=== PATIENT | female | born 1970 | race Caucasian/White ===

== ENCOUNTER → 2019-02-19 08:05 | Outpatient (CLI) | payer MEDICAID, SELFPAY ==
[2018-09-05 09:34] VITALS: BMI 17.8
--- NOTE | 2019-02-19 08:11 | BI_ITS ---
MAMMOGRAPHY - BILATERAL SCREENING REASON FOR EXAM: Female, 48 years old. Routine annual screening examination. PERTINENT HISTORY: Aunt with breast cancer. TECHNIQUE: Digital bilateral breast lavelle (3D mammographic acquisition) in the CC and MLO projections. 2-D mediolateral oblique (MLO) and craniocaudad (CC) views of both breasts were obtained. CAD: Full Field Digital Mammography with Computer Added Detection was performed. COMPARISON: Comparison is made with prior study dated July 27, 2017 and March 12, 2015. FINDINGS: Breast Composition: The breasts are heterogeneously dense, which may obscure small masses. There are no dominant masses or suspicious calcifications. No other significant abnormalities are identified. There has been no significant change since the prior study. BI/SCREEN MAMM (CAD) W/LAVELLE BILAT IMPRESSION: Stable bilateral screening mammogram. Yearly follow-up mammogram recommended. (A) ASSESSMENT CATEGORY: BIRADS Category 1: Negative. A letter regarding these results will be sent to the patient by the facility within 30 days. Approximately 10% of breast cancers are not detected by mammography. A normal mammogram should not delay biopsy of a clinically suspicious abnormality. [id number] Electronically Signed: Isidoro Silva, at 8:56 EDT , Service support ,
== END ==
PROVIDERS: Visit Provider Nurse Practitioner Family
DX: Z12.31 Encounter for screening mammogram for malignant neoplasm of breast (principal)
CPT/HCPCS: 77063; 77067

== ENCOUNTER → 2019-03-10 14:12 | Outpatient (CLI) | payer MEDICAID, SELFPAY ==
[2019-03-10 11:31] VITALS: BMI 17.8
[2019-03-10 14:15] LABS: Bacteria 0 SEEN /hpf (None Seen); Mucous, Urine 0 SEEN /hpf (<or=2+); Squamous Epithelial Cells - UA 0 SEEN /hpf (5-10)
[2019-03-10 15:06] LABS: Color, Urine Yellow (Yellow); Glucose, Dipstick Normal (Normal); Ketone-Dipstick Negative (Negative); Leukocyte Esterase-Dipstick 25 /ul (Negative); Nitrite-Dipstick Negative (Negative); Occult Blood-Urine 150 /ul (Negative); Protein-Dipstick 15 mg/dl (Negative); Specific Gravity, Urine 1.025 (1.002-1.030); Urine Bilirubin Dipstick Negative (Negative); Urine Clarity Clear (Clear); Urine Urobilinogen Normal (Normal)
[2019-03-10 15:10] LABS: Red Blood Cells-Urine 10-25 SEEN /hpf (0-5); White Blood Cells 0-5 SEEN /hpf (0-5)
== END ==
PROVIDERS: Visit Provider Nurse Practitioner Family
DX: R30.0 Dysuria (principal); R39.15 Urgency of urination
CPT/HCPCS: 81001; 87086; 87088

== ENCOUNTER → 2019-05-02 11:35 | Outpatient (CLI) | payer MEDICAID, SELFPAY ==
[2019-03-10 11:31] VITALS: BMI 17.8
--- NOTE | 2019-05-02 11:37 | US_ITS ---
STUDY: THYROID ULTRASOUND REASON FOR EXAM: Female, 49 years old. Goiter TECHNIQUE: Ultrasound evaluation of the thyroid was performed with real-time and static gant-scale imaging. COMPARISON: None. FINDINGS: RIGHT LOBE: The right lobe of the thyroid gland measures 3.9 x 1 x 0.9 cm. There is a homogeneous echotexture. There are no demonstrated solid, cystic or complex lesions. LEFT LOBE: The left lobe of the thyroid gland measures 3.7 x 1.1 x 0.7 cm. There is a homogeneous echotexture. There are no demonstrated solid, cystic or complex lesions. ISTHMUS: The isthmus measures 2 mm . The regional lymph nodes are normal. US/Thyroid IMPRESSION: Normal ultrasound examination of the thyroid. Electronically Signed: Chadd Leblanc MD at 17:24 EDT , Service support ,
== END ==
DX: E04.1 Nontoxic single thyroid nodule (principal)
CPT/HCPCS: 76536

== ENCOUNTER → 2020-05-22 10:42 | Outpatient (CLI) | payer MEDICAID, SELFPAY ==
[2019-09-23 11:53] VITALS: BMI 17.8
[2020-05-22 11:37] LABS: Absolute Lymphocyte Count 1.36 X10^3/uL (0.83-4.51); Basophil# 0.06 X10^3/uL; Basophil% 1.6 % (0-1); Eosinophil# 0.03 X10^3/uL; Eosinophils% 0.8 % (0-5); Hematocrit 35.7 % (37-47); Hemoglobin 11.5 g/dL (12.0-15.0); Lymphocyte # 1.36 X10^3/ul (4.0); Lymphocyte % 36.1 % (19-41); Mean Corp Hgb Conc 32.2 g/dL (32-36); Mean Corpuscular Hgb 31.4 pg (27.0-32.0); Mean Corpuscular Volume 97.5 fL (81-99); Mean Platelet Vol. 9.7 fl (6.2-12.0); Monocyte# 0.32 X10^3/uL; Monocyte% 8.5 % (0-10); NRBC Flagged by Analyzer 0 % (0-5); Neutrophil # 1.99 X10^3/uL (2.7-7.7); Neutrophil % 52.7 % (47-70); Platelet Count 265 K/mm3 (150-450); RBC Distribution Width CV 12.5 % (11.6-14.6); RBC Distribution Width SD 44.7 fl (35.1-43.9); Red Blood Count 3.66 M/mm3 (4.2-5.4); White Blood Count 3.8 K/mm3 (4.4-11.0)
[2020-05-22 12:03] LABS: Vitamin D,25 Hydroxy 48.7 ng/mL
[2020-05-22 12:04] LABS: ALB/GLOB Ratio 1.3 RATIO (0.9-2.4); AST(SGOT) 27 U/L (15-37); Alanine Aminotransfer ALT/SGPT 29 U/L (13-56); Albumin, Serum 4.1 g/dL (3.2-5.0); Alkaline Phosphatase 42 U/L (45-117); Anion Gap 7 (5-15); BUN 15 mg/dL (7-18); BUN/Creat Ratio 14.6 RATIO (10-20); Calcium,Total 9.4 mg/dL (8.5-10.1); Chloride 109 mmol/L (98-107); Cholesterol 203 mg/dL (200); Creatinine, Serum 1.03 mg/dL (0.55-1.02); EST Glomerular Filtration Rate 61 mL/min (>60); Est Glom Filt Rate - Afr Amer 74 mL/min (>60); Globulin 3.2 g/dL (2.2-4.2); Glucose 77 mg/dL (74-106); High Density Lipoprotein 116 mg/dL; Potassium 3.8 mmol/L (3.5-5.1); Protein, Total 7.3 g/dL (6.4-8.2); Sodium Level 143 mmol/L (136-145); Thyroid Stim Hormone (TSH) 1.96 uIU/mL (0.358-3.74); Triglycerides 51 mg/dL; Very Low Density Lipoprotein 10 mg/dL (5-40)
[2020-05-22 12:05] LABS: Hemoglobin A1c 5.2 % (3.8-5.6)
[2020-05-23 08:27] LABS: T4 Free Direct 0.67 ng/dL (0.76-1.46)
== END ==
PROVIDERS: Referring Provider Nurse Practitioner Family; Visit Provider Nurse Practitioner Family
DX: E78.5 Hyperlipidemia, unspecified (principal); N18.9 Chronic kidney disease, unspecified; D63.1 Anemia in chronic kidney disease; F50.00 Anorexia nervosa, unspecified; Z13.29 Encounter for screening for other suspected endocrine disorder
CPT/HCPCS: 36415; 80053; 80061; 82306; 83036; 84439; 84443; 84481; 85025

== ENCOUNTER → 2020-08-14 10:59 | Outpatient (CLI) | payer MEDICAID, SELFPAY ==
[2019-09-23 11:53] VITALS: BMI 17.8
[2020-08-14 11:39] LABS: Absolute Lymphocyte Count 1.43 X10^3/uL (0.83-4.51); Basophil# 0.07 X10^3/uL; Basophil% 1.8 % (0-1); Eosinophil# 0.02 X10^3/uL; Eosinophils% 0.5 % (0-5); Hematocrit 37.6 % (37-47); Hemoglobin 11.8 g/dL (12.0-15.0); Lymphocyte # 1.43 X10^3/ul (4.0); Lymphocyte % 37.1 % (19-41); Mean Corp Hgb Conc 31.4 g/dL (32-36); Mean Corpuscular Hgb 30.8 pg (27.0-32.0); Mean Corpuscular Volume 98.2 fL (81-99); Mean Platelet Vol. 9.9 fl (6.2-12.0); Monocyte# 0.32 X10^3/uL; Monocyte% 8.3 % (0-10); NRBC Flagged by Analyzer 0 % (0-5); Platelet Count 239 K/mm3 (150-450); RBC Distribution Width CV 12.2 % (11.6-14.6); RBC Distribution Width SD 44.5 fl (35.1-43.9); Red Blood Count 3.83 M/mm3 (4.2-5.4); White Blood Count 3.9 K/mm3 (4.4-11.0)
[2020-08-14 12:16] LABS: ALB/GLOB Ratio 1.3 RATIO (0.9-2.4); AST(SGOT) 26 U/L (15-37); Alanine Aminotransfer ALT/SGPT 31 U/L (13-56); Albumin, Serum 4.2 g/dL (3.2-5.0); Alkaline Phosphatase 49 U/L (45-117); Anion Gap 6 (5-15); BUN 12 mg/dL (7-18); BUN/Creat Ratio 11.4 RATIO (10-20); Calcium,Total 9.7 mg/dL (8.5-10.1); Chloride 111 mmol/L (98-107); Cholesterol 223 mg/dL (200); Creatinine, Serum 1.05 mg/dL (0.55-1.02); EST Glomerular Filtration Rate 59 mL/min (>60); Est Glom Filt Rate - Afr Amer 72 mL/min (>60); Globulin 3.3 g/dL (2.2-4.2); Glucose 76 mg/dL (74-106); High Density Lipoprotein 127 mg/dL; Potassium 3.6 mmol/L (3.5-5.1); Protein, Total 7.5 g/dL (6.4-8.2); Sodium Level 143 mmol/L (136-145); Triglycerides 57 mg/dL; Very Low Density Lipoprotein 11 mg/dL (5-40)
== END ==
DX: E78.5 Hyperlipidemia, unspecified (principal)
CPT/HCPCS: 36415; 80053; 80061; 85025

== ENCOUNTER → 2020-12-21 10:08 | Outpatient (CLI) | payer MEDICAID, SELFPAY ==
[2019-09-23 11:53] VITALS: BMI 17.8
[2020-12-21 11:17] LABS: Absolute Lymphocyte Count 1.62 X10^3/uL (0.83-4.51); Absolute Neutrophil Count 2.1 X10^3/uL (2.0-7.7); Basophil# 0.05 X10^3/uL; Basophil% 1.2 % (0-1); Eosinophil# 0.05 X10^3/uL; Eosinophils% 1.2 % (0-5); Hematocrit 38.4 % (37-47); Hemoglobin 11.9 g/dL (12.0-15.0); Lymphocyte # 1.62 X10^3/ul (0.83-4.51); Lymphocyte % 39.3 % (19-41); Mean Corpuscular Hgb 30.5 pg (27.0-32.0); Mean Corpuscular Volume 98.5 fL (81-99); Monocyte# 0.34 X10^3/uL; Monocyte% 8.3 % (0-10); NRBC Flagged by Analyzer 0 % (0-5); Neutrophil # 2.05 X10^3/uL (2.7-7.7); Neutrophil % 49.8 % (47-70); Platelet Count 250 K/mm3 (150-450); RBC Distribution Width CV 12.5 % (11.6-14.6); RBC Distribution Width SD 45.3 fl (35.1-43.9); White Blood Count 4.1 K/mm3 (4.4-11.0)
[2020-12-21 11:54] LABS: ALB/GLOB Ratio 1.2 RATIO (0.9-2.4); AST(SGOT) 25 U/L (15-37); Alanine Aminotransfer ALT/SGPT 33 U/L (13-56); Alkaline Phosphatase 49 U/L (45-117); Anion Gap 4 (5-15); BUN 12 mg/dL (7-18); BUN/Creat Ratio 11.2 RATIO (10-20); Calcium,Total 9.6 mg/dL (8.5-10.1); Chloride 108 mmol/L (98-107); Creatinine, Serum 1.07 mg/dL (0.55-1.02); EST Glomerular Filtration Rate 58 mL/min (>60); Est Glom Filt Rate - Afr Amer 70 mL/min (>60); Globulin 3.2 g/dL (2.2-4.2); Glucose 74 mg/dL (74-106); Potassium 3.6 mmol/L (3.5-5.1); Protein, Total 7.2 g/dL (6.4-8.2); Sodium Level 140 mmol/L (136-145); Thyroid Stim Hormone (TSH) 3.26 uIU/mL (0.358-3.74)
== END ==
DX: F50.00 Anorexia nervosa, unspecified (principal)
CPT/HCPCS: 36415; 80053; 84443; 85025

== ENCOUNTER → 2020-12-27 14:14 | Outpatient (CLI) | payer MEDICAID, SELFPAY ==
[2019-09-23 11:53] VITALS: BMI 17.8
--- NOTE | 2020-12-27 14:16 | BI_ITS ---
MAMMOGRAPHY - BILATERAL SCREENING REASON FOR EXAM: Female, 50 years old. Routine annual screening examination. PERTINENT HISTORY: Aunt with breast cancer. TECHNIQUE: Digital bilateral breast lavelle (3D mammographic acquisition) in the CC and MLO projections. 2-D mediolateral oblique (MLO) and craniocaudad (CC) views of both breasts were obtained. CAD: Full Field Digital Mammography with Computer Added Detection was performed. COMPARISON: Comparison is made with prior study dated 02/19/2019 and 11/04/2016. FINDINGS: Breast Composition: The breasts are heterogeneously dense, which may obscure small masses. There are no dominant masses or suspicious calcifications. No other significant abnormalities are identified. There has been no significant change since the prior study. BI/SCRN MAMM (CAD)W/LAVELLE BILAT IMPRESSION: Stable bilateral screening mammogram. Yearly follow-up mammogram recommended. (A) ASSESSMENT CATEGORY: BIRADS Category 1: Negative. A letter regarding these results will be sent to the patient by the facility within 30 days. Approximately 10% of breast cancers are not detected by mammography. A normal mammogram should not delay biopsy of a clinically suspicious abnormality. [id number] Electronically Signed: Isidoro Silva MD at 15:31 EDT , Service support ,
--- NOTE | 2020-12-27 14:22 | BD_ITS ---
STUDY: DUAL ENERGY X-RAY ABSORPTIOMETRY / DXA REASON FOR EXAM: Female, 50 years old. F50.00 TECHNIQUE: Bone Mineral Density (BMD) measurements of lumbar spine and bilateral hips were obtained. COMPARISON: None. FINDINGS: Lumbar Spine (L1-L4): g/cm2 (1.156) / T-score (-0.2) / Z-score (0.1) Findings are suggestive of normal bone density with a low fracture risk. Left Femur Total: g/cm2 (0.779) / T-score (-1.8) / Z-score (-1.4) Left Femoral Neck: g/cm2 (0.828) / T-score (-1.5) / Z-score (-0.8) Right Femur Total: g/cm2 (0.745) / T-score (-2.1) / Z-score (-1.7) Right Femoral Neck: g/cm2 (0.866) / T-score (-1.2) / Z-score (-0.5) BD/Dexa Bone Density Study IMPRESSION: The patient is considered osteopenic as outlined below according to [employer] [place] Organization (WHO) criteria with a moderate fracture risk. Reference Information: The T-score is the number of standard deviations above or below the standard which is normal for young adults at their peak bone mineral density. The World Health Organization (WHO) interprets the T-scores as follows: Above -1 Normal bone density Between -1 and -2.5 Osteopenia Equal to / or below -2.5 Osteoporosis As a practical clinical guideline, osteopenia may be graded as follows: Mild -1 through -1.5 Moderate -1.6 through -2.0 Severe -2.1 through -2.4 The Z-score is the number of standard deviations above or below age-matched controls. A Z-score of less than -1.5 would be considered abnormal. References: 1. NIH Osteoporosis and Related Bone Diseases www osteo.org 2. International Society for Clinical Densitometry www iscd.org 3. National Osteoporosis Foundation www nof.org Electronically Signed: Isidoro Silva MD at 15:41 EDT , Service support ,
== END ==
DX: F50.00 Anorexia nervosa, unspecified (principal); Z12.31 Encounter for screening mammogram for malignant neoplasm of breast; Z80.3 Family history of malignant neoplasm of breast
CPT/HCPCS: 77063; 77067; 77080

== ENCOUNTER → 2021-05-22 11:02 | Outpatient (CLI) | payer MEDICAID, SELFPAY ==
[2021-05-22 13:13] LABS: Absolute Lymphocyte Count 1.45 X10^3/uL (0.83-4.51); Absolute Neutrophil Count 2.8 X10^3/uL (2.0-7.7); Basophil# 0.04 X10^3/uL; Basophil% 0.9 % (0-1); Eosinophil# 0.04 X10^3/uL; Eosinophils% 0.9 % (0-5); Hematocrit 34.9 % (37-47); Hemoglobin 11.1 g/dL (12.0-15.0); Lymphocyte # 1.45 X10^3/ul (0.83-4.51); Mean Corp Hgb Conc 31.8 g/dL (32-36); Mean Corpuscular Hgb 31.4 pg (27.0-32.0); Mean Corpuscular Volume 98.9 fL (81-99); Mean Platelet Vol. 10.6 fl (6.2-12.0); Monocyte# 0.37 X10^3/uL; Monocyte% 7.9 % (0-10); NRBC Flagged by Analyzer 0 % (0-5); Neutrophil # 2.76 X10^3/uL (2.7-7.7); Neutrophil % 59.1 % (47-70); Platelet Count 226 K/mm3 (150-450); RBC Distribution Width CV 12.4 % (11.6-14.6); Red Blood Count 3.53 M/mm3 (4.2-5.4); White Blood Count 4.7 K/mm3 (4.4-11.0)
[2021-05-22 13:51] LABS: AST(SGOT) 29 U/L (15-37); Alanine Aminotransfer ALT/SGPT 31 U/L (13-56); Albumin, Serum 3.6 g/dL (3.2-5.0); Alkaline Phosphatase 49 U/L (45-117); Anion Gap 5 (5-15); BUN 12 mg/dL (7-18); BUN/Creat Ratio 12.3 RATIO (10-20); Calcium,Total 10.3 mg/dL (8.5-10.1); Chloride 110 mmol/L (98-107); Creatinine, Serum 0.98 mg/dL (0.55-1.02); EST Glomerular Filtration Rate 64 mL/min (>60); Est Glom Filt Rate - Afr Amer 78 mL/min (>60); Globulin 3.5 g/dL (2.2-4.2); Glucose 75 mg/dL (74-106); Potassium 3.7 mmol/L (3.5-5.1); Protein, Total 7.1 g/dL (6.4-8.2); Sodium Level 142 mmol/L (136-145)
== END ==
DX: D64.9 Anemia, unspecified (principal); F50.00 Anorexia nervosa, unspecified
CPT/HCPCS: 36415; 80053; 85025

== ENCOUNTER → 2021-05-24 11:31 | Outpatient (CLI) | payer MEDICAID, SELFPAY ==
[2021-05-24 13:29] LABS: Vitamin B12 > 2000 pg/mL (211-911)
[2021-05-24 14:13] LABS: Iron 115 ug/dL (50-170); Iron Binding Capacity,Total 318 ug/dL (250-450); PERCENT IRON SATURATION 36.2 % (15.0-55.0)
== END ==
PROVIDERS: Referring Provider Nurse Practitioner Adult Health; Visit Provider Nurse Practitioner Adult Health
DX: D64.9 Anemia, unspecified (principal)
CPT/HCPCS: 36415; 82607; 82746; 83540; 83550

== ENCOUNTER → 2021-07-20 | Outpatient (CLI) | payer MEDICAID, SELFPAY ==
[2021-07-20 15:06] LABS: Mucous, Urine 0 SEEN /hpf (<or=2+)
[2021-07-20 15:49] LABS: Color, Urine Yellow (Yellow); Glucose, Dipstick Normal (Normal); Ketone-Dipstick 5 mg/dl (Negative); Leukocyte Esterase-Dipstick 25 /ul (Negative); Nitrite-Dipstick Negative (Negative); Occult Blood-Urine 10 /ul (Negative); Protein-Dipstick 15 mg/dl (Negative); Specific Gravity, Urine 1.025 (1.002-1.030); Urine Bilirubin Dipstick Negative (Negative); Urine Clarity Sl. Cloudy (Clear); Urine Urobilinogen Normal (Normal)
[2021-07-20 16:12] LABS: Red Blood Cells-Urine 0-5 SEEN /hpf (0-5); Squamous Epithelial Cells - UA 5-10 SEEN /hpf (5-10); White Blood Cells 0-5 SEEN /hpf (0-5)
[2021-07-20 16:13] LABS: Bacteria RARE /hpf (None Seen)
== END | disposition home or self-care (01) ==
PROVIDERS: Referring Provider Physician Assistant Medical; Visit Provider Physician Assistant Medical
DX: N39.0 Urinary tract infection, site not specified (principal)
CPT/HCPCS: 81001; 87086; 87088

== ENCOUNTER 2021-08-13 13:15 | Emergency (ER) | payer MEDICAID, SELFPAY ==
[2021-08-13 13:15] VITALS: BP 159/87; PULSE 63; RESP 18; TEMP 35.8; O2SAT 98; BMI 20.5
[2021-08-13 14:16] LABS: Absolute Lymphocyte Count 0.98 X10^3/uL (0.83-4.51); Absolute Neutrophil Count 6.3 X10^3/uL (2.0-7.7); Basophil# 0.06 X10^3/uL; Basophil% 0.8 % (0-1); Eosinophil# 0.01 X10^3/uL; Eosinophils% 0.1 % (0-5); Hematocrit 39.9 % (37-47); Hemoglobin 13.2 g/dL (12.0-15.0); Lymphocyte # 0.98 X10^3/ul (0.83-4.51); Lymphocyte % 12.3 % (19-41); Mean Corp Hgb Conc 33.1 g/dL (32-36); Mean Corpuscular Hgb 31.6 pg (27.0-32.0); Mean Corpuscular Volume 95.5 fL (81-99); Mean Platelet Vol. 9.8 fl (6.2-12.0); Monocyte# 0.59 X10^3/uL; Monocyte% 7.4 % (0-10); NRBC Flagged by Analyzer 0 % (0-5); Neutrophil # 6.32 X10^3/uL (2.7-7.7); Neutrophil % 79.1 % (47-70); Platelet Count 283 K/mm3 (150-450); RBC Distribution Width CV 12.4 % (11.6-14.6); RBC Distribution Width SD 43.3 fl (35.1-43.9); Red Blood Count 4.18 M/mm3 (4.2-5.4)
[2021-08-13 14:29] LABS: Internal QC Validated? YES +Cl - CLEAR BKGD; Pregnancy, Serum, hCG Quali. NEGATIVE Negative
[2021-08-13 14:31] LABS: Anion Gap 9 (5-15); BUN 20 mg/dL (7-18); BUN/Creat Ratio 14.7 RATIO (10-20); Calcium,Total 11.5 mg/dL (8.5-10.1); Chloride 110 mmol/L (98-107); Creatinine, Serum 1.36 mg/dL (0.55-1.02); EST Glomerular Filtration Rate 44 mL/min (>60); Est Glom Filt Rate - Afr Amer 53 mL/min (>60); Glucose 87 mg/dL (74-106); Potassium 3.6 mmol/L (3.5-5.1); Sodium Level 145 mmol/L (136-145)
--- NOTE | 2021-08-13 15:33 | CT_ITS ---
STUDY: CT ABDOMEN AND PELVIS WITHOUT CONTRAST REASON FOR EXAM: Female, 51 years old. Flank pain RADIATION DOSAGE (If Supplied By Facility): CTDIvol = ( 6.04 ) mGy, DLP = ( 271.80 ) mGycm TECHNIQUE: Transaxial images were obtained from the dome of the diaphragm to the symphysis pubis without oral contrast, and without intravenous contrast. Sagittal and coronal images were reconstructed. Individualized dose optimization techniques were used for this CT. COMPARISON: None. FINDINGS: Partially visualized nodular densities on the right major fissure. The visualized portions of the heart are within normal limits. Normal liver. Normal gallbladder and extrahepatic biliary system. Normal spleen. Normal pancreas. Normal bilateral adrenal glands. Punctate stone in the right kidney. 6 mm fatty nodule likely an angiomyolipoma in the left kidney. Left hydronephrosis with left hydroureter with a distal ureteral stone noted measuring 4 mm located approximately 1.3 cm proximal to the UVJ.. Normal visualized stomach. Normal small intestine. Normal colon. The appendix is visualized and appears normal. Normal abdominal aorta. Normal inferior vena cava. Normal retroperitoneum. Normal urinary bladder. Normal abdominal wall. Spondylolysis at L5.. CT/Abdomen/Pelvis without Cont IMPRESSION: Punctate right renal stone. Left hydronephrosis and left hydroureter with a distal left ureteral stone noted. 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 Nonspecific partially visualized nodule along the right major fissure. Electronically Signed: Pipo Reina DO at 16:15 EST Tel [phone], Service support ,
[2021-08-13 15:40] LABS: Mucous, Urine 0 SEEN /hpf (<or=2+)
--- NOTE | 2021-08-13 15:41 | EDS_ITS ---
HPI HPI - GI History of Present Illness Chief Complaint: Flank Pain Narrative Narrative: Patient presenting for evaluation secondary to left-sided flank pain. Patient reports that she had an onset of this this morning. Its waxing and waning relatively severe type pain that is worse with palpation not necessarily movement. Patient denies constitutional symptoms such as fever chills night sweats unintended weight loss. Patient does report that she has been currently getting treated for a urinary tract infection, she finished her last dose of Keflex just this morning reports that she no longer has urinary urgency or burning. She denies any hematuria. Patient denies any underlying past history of of kidney stones. Review of systems otherwise negative. [facility] Medical History Anemia Diarrhea Hx of anorexia nervosa Hypercholesterolemia Home Medications ascorbic acid (vitamin C) 500 mg capsule 500 mg PO DAILY cap 06/14/18 [History Last Taken Unknown] bupropion HCl 150 mg tablet,12 hr sustained-release 150 mg PO DAILY 30 Days #60 ea 06/14/18 [History Last Taken Unknown] cholecalciferol (vitamin D3) 25 mcg (1,000 unit) capsule 1,000 unit PO DAILY 06/14/18 [History Last Taken Unknown] escitalopram oxalate 20 mg tablet 20 mg PO DAILY 30 Days #30 tab 06/14/18 [ History Last Taken Unknown] multivitamin 1 cap PO DAILY 06/14/18 [History Last Taken Unknown] pravastatin 10 mg tablet 10 mg PO DAILY 30 Days #30 tab 06/14/18 [History Last Taken Unknown] cephalexin 500 mg PO Q12 #14 capsule 08/13/21 [Rx Last Taken Unknown] ketorolac 10 mg PO TID 5 Days #15 tab 08/13/21 [Rx Last Taken Unknown] tamsulosin [Flomax] 0.4 mg PO DAILY #7 cap 08/13/21 [Rx Last Taken Unknown] Allergy/AdvReac Type Severity Reaction Status Date / Time Sulfa (Sulfonamide Allergy Unknown Verified 08/13/21 13:17 Antibiotics) Family History Other Breast cancer Colon cancer Diabetes Hypercholesterolemia Hypertension Social History Smoking Status: Never smoker alcohol intake: never ROS ROS ED Constitutional Constitutional ED: Denies chills or fever(s) ENT ENT ED: Denies rhinorrhea Cardiovascular Cardiovascular: Denies chest pain Respiratory/Chest Respiratory/Chest: Denies cough or dyspnea Gastrointestinal Gastrointestinal: Denies abdominal pain, diarrhea, nausea or vomiting Genitourinary Genitourinary ED: Reports other Details: Left flank pain Musculoskeletal Musculoskeletal: Denies back pain Integumentary Denies rash Neurologic Neurologic: Denies paresthesias or weakness Psychiatric Psychiatric: Denies depression Endocrine Endocrinology: Denies fatigue Allergic/Immunologic Allergic/Immunologic ED: Denies urticaria EXAM Physical Exam Const Vital Signs: 08/13/21 13:15 08/13/21 15:26 Temperature 96.5 F L Temperature Source Temporal Pulse Rate 63 Respiratory Rate 18 Respiratory Effort Normal Non-Labored Respiratory Pattern Normal Blood Pressure 159/87 H Blood Pressure Mean 111 Pulse Ox 98 Oxygen Delivery Method Room Air Positive well nourished and well developed General Appearance ED: well developed and NAD HEENT Reports moist mucous membranes Negative for trauma or tenderness Eyes EOMs intact bilaterally Neck no lymphadenopathy, supple and no JVD Chest Wall inspection of chest normal Resp normal respiratory effort and clear to auscultation bilaterally Cardio regular rate, regular rhythm, no murmurs and peripheral pulses 2+ throughout GI normal to inspection, nondistended, normoactive bowel sounds, non-tender and no masses Palpation: soft Back/Spine normal to inspection Back/Spine Narrative: No evidence of overlying vesicular rash. No real tenderness to percussion noted. Extremity normal to inspection General Extremety ED: Negative for tenderness Neuro oriented x3 and no sensory deficits noted Sensorium / Orientation: alert Motor Exam: strength 5/5 throughout Psych mental status grossly normal Skin no rashes or lesions noted MDM MDM MDM Narrative Medical decision making narrative: Patient presented for evaluation secondary to flank pain. Laboratory studies were obtained in triage, CBC was unremarkable, chemistry does demonstrate the patient to have mild elevation of her creatinine from a baseline of 0.9 up to 1.36 no evidence of significant electrolyte derangements. Urinalysis demonstrates blood, hyaline casts, and +1 bacteria no significant pyuria noted. CT abdomen and pelvis was performed on the patient which does show evidence of a distal left-sided ureteral stone with associated hydronephrosis by my personal review. Patient was given IV hydration as well as a small dose of Toradol for treatment of pain control. Radiology review of CT scan demonstrates a 4 mm distal left-sided ureteral stone consistent with my above interpretation. Patient will be discharged with the above treatment. Lab Data Labs: Laboratory Results - last 24 hr 08/13/21 08/13/21 08/13/21 14:08 14:08 14:08 WBC 8.0 RBC 4.18 L Hgb 13.2 Hct 39.9 MCV 95.5 MCH 31.6 MCHC 33.1 RDW Std Deviation 43.3 RDW Coeff of Jennifer 12.4 Plt Count 283 MPV 9.8 Immature Gran % (Auto) 0.300 Neut % (Auto) 79.1 H Lymph % (Auto) 12.3 L [place] % (Auto) 7.4 Eos % (Auto) 0.1 Baso % (Auto) 0.8 Absolute Neuts (auto) 6.3 Absolute Lymphs (auto) 0.98 Nucleated RBC % 0 Sodium 145 Potassium 3.6 Chloride 110 H Carbon Dioxide 26.0 Anion Gap 9 BUN 20 H Creatinine 1.36 H Estim Creat Clear Calc 43.00 Est GFR (MDRD) Af Amer 53 L Est GFR (MDRD) Non-Af 44 L BUN/Creatinine Ratio 14.7 Glucose 87 Calcium 11.5 H Serum , Qual NEGATIVE Urine Color Urine Clarity Urine pH Ur Specific [place] Urine Protein Urine Glucose (UA) Urine Ketones Urine Occult Blood Urine Nitrite Urine Bilirubin Urine Urobilinogen Ur Leukocyte Esterase Urine RBC Urine WBC Ur Squamous Epith Cells Calcium Oxalate Crystal Urine Bacteria Hyaline Casts Urine Mucus 08/13/21 15:30 WBC RBC Hgb Hct MCV MCH MCHC RDW Std Deviation RDW Coeff of Jennifer Plt Count MPV Immature Gran % (Auto) Neut % (Auto) Lymph % (Auto) [place] % (Auto) Eos % (Auto) Baso % (Auto) Absolute Neuts (auto) Absolute Lymphs (auto) Nucleated RBC % Sodium Potassium Chloride Carbon Dioxide Anion Gap BUN Creatinine Estim Creat Clear Calc Est GFR (MDRD) Af Amer Est GFR (MDRD) Non-Af BUN/Creatinine Ratio Glucose Calcium Serum , Qual Urine Color Yellow Urine Clarity Sl. Cloudy Urine pH 5.0 Ur Specific [place] 1.030 Urine Protein 30 H Urine Glucose (UA) Normal Urine Ketones 50 H Urine Occult Blood 150 H Urine Nitrite Negative Urine Bilirubin Negative Urine Urobilinogen Normal Ur Leukocyte Esterase 25 H Urine RBC 10-25 SEEN Urine WBC 0-5 SEEN Ur Squamous Epith Cells 0-5 SEEN Calcium Oxalate Crystal 1+ Urine Bacteria 1+ Hyaline Casts 10-25 SEEN Urine Mucus 0 SEEN Radiography Diagnostic Testing: Clinical Impression(s) from Imaging Studies Abdomen/Pelvis CT 08/13/21 15:33 IMPRESSION: Punctate right renal stone. Left hydronephrosis and left hydroureter with a distal left ureteral stone noted. 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 Nonspecific partially visualized nodule along the right major fissure. Electronically Signed: Pipo Reina DO at 16:15 EST Tel [phone], Service support , Discharge Plan Triage Chief Complaint: Flank Pain ED Provider: Hitesh Miles Dx/Rx/DC Orders Instructions: ED Kidney Stone w/ Colic Prescriptions: New cephalexin 500 mg capsule 500 mg PO Q12 Qty: 14 RF: 0 ketorolac 10 mg tablet 10 mg PO TID 5 Days Qty: 15 RF: 0 tamsulosin [Flomax] 0.4 mg capsule 0.4 mg PO DAILY Qty: 7 RF: 0 No Action bupropion HCl 150 mg tablet sustained-release 12 hr 150 mg PO DAILY 30 Days Qty: 60 RF: 0 pravastatin 10 mg tablet 10 mg PO DAILY 30 Days Qty: 30 RF: 0 escitalopram oxalate 20 mg tablet 20 mg PO DAILY 30 Days Qty: 30 RF: 0 ascorbic acid (vitamin C) 500 mg capsule 500 mg PO DAILY RF: 0 cholecalciferol (vitamin D3) 1,000 unit capsule 1,000 unit PO DAILY RF: 0 multivitamin capsule capsule 1 cap PO DAILY RF: 0 [facility]errals: Caren Byrd MD [STAFF PHYSICIAN] - [facility] - Disposition Disposition: Home, Self Care
[2021-08-13 15:44] LABS: Color, Urine Yellow (Yellow); Glucose, Dipstick Normal (Normal); Ketone-Dipstick 50 mg/dl (Negative); Leukocyte Esterase-Dipstick 25 /ul (Negative); Nitrite-Dipstick Negative (Negative); Occult Blood-Urine 150 /ul (Negative); Protein-Dipstick 30 mg/dl (Negative); Urine Bilirubin Dipstick Negative (Negative); Urine Clarity Sl. Cloudy (Clear); Urine Urobilinogen Normal (Normal)
[2021-08-13 15:51] LABS: Hyaline Cast 10-25 SEEN /lpf (0-5)
[2021-08-13 15:52] LABS: Red Blood Cells-Urine 10-25 SEEN /hpf (0-5)
[2021-08-13 15:54] LABS: Bacteria 1+ /hpf (None Seen); Calcium Oxalate Crystals Ur 1+ /hpf (<or=2+); Squamous Epithelial Cells - UA 0-5 SEEN /hpf (5-10); White Blood Cells 0-5 SEEN /hpf (0-5)
[2021-08-13] MEDS: 0.9% Normal Saline 1,000 ML 1000 ML IV (16:28)
[2021-08-13] MEDS: Ketorolac 30 MG/ML Syringe 15 MG IV (16:28)
[2021-08-13 17:24] VITALS: BP 128/77; PULSE 62; RESP 16; O2SAT 98
== END 2021-08-13 17:29 | disposition home or self-care (01) ==
PROVIDERS: Emergency Provider Emergency Medicine
DX: N20.0 Calculus of kidney (principal); D64.9 Anemia, unspecified; Z79.899 Other long term (current) drug therapy
CPT/HCPCS: 74176; 80048; 81001; 84703; 85025; 96374; 99284; J7030; A4216

== ENCOUNTER 2021-09-17 12:21 | Outpatient (CLI) | payer MEDICAID, SELFPAY ==
[2021-09-17 13:29] LABS: Calcium,Total 10.2 mg/dL (8.5-10.1); Cholesterol 224 mg/dL (200); High Density Lipoprotein 125 mg/dL; Triglycerides 79 mg/dL; Very Low Density Lipoprotein 16 mg/dL (5-40)
== END 2021-09-17 23:59 | disposition short-term general hospital (02) ==
LOC: LAB 12:23
DX: F50.00 Anorexia nervosa, unspecified (principal); Z87.442 Personal history of urinary calculi; M81.6 Localized osteoporosis [Lequesne]
CPT/HCPCS: 36415; 80061; 82310

== ENCOUNTER → 2022-01-09 | Outpatient (CLI) | payer MEDICAID, SELFPAY ==
[2022-01-09 07:32] LABS: Absolute Lymphocyte Count 1.44 X10^3/uL (0.83-4.51); Absolute Neutrophil Count 2.3 X10^3/uL (2.0-7.7); Basophil# 0.06 X10^3/uL; Basophil% 1.4 % (0-1); Eosinophil# 0.06 X10^3/uL; Eosinophils% 1.4 % (0-5); Hematocrit 39.4 % (37-47); Hemoglobin 12.8 g/dL (12.0-15.0); Lymphocyte # 1.44 X10^3/ul (0.83-4.51); Lymphocyte % 33.3 % (19-41); Mean Corp Hgb Conc 32.5 g/dL (32-36); Mean Corpuscular Hgb 31.9 pg (27.0-32.0); Mean Corpuscular Volume 98.3 fL (81-99); Mean Platelet Vol. 9.8 fl (6.2-12.0); Monocyte# 0.42 X10^3/uL; Monocyte% 9.7 % (0-10); NRBC Flagged by Analyzer 0 % (0-5); Neutrophil # 2.33 X10^3/uL (2.7-7.7); Platelet Count 247 K/mm3 (150-450); RBC Distribution Width CV 12.8 % (11.6-14.6); RBC Distribution Width SD 45.9 fl (35.1-43.9); Red Blood Count 4.01 M/mm3 (4.2-5.4); White Blood Count 4.3 K/mm3 (4.4-11.0)
[2022-01-11 15:24] LABS: Vitamin D 1,25-Dihydroxy 21.4 pg/mL (19.9-79.3)
== END | disposition home or self-care (01) ==
LOC: LAB 06:57
DX: D64.9 Anemia, unspecified (principal)
CPT/HCPCS: 36415; 82652; 85025

== ENCOUNTER 2022-03-28 12:36 | Observation (INO) | payer MEDICAID, SELFPAY ==
[2022-03-28 12:39] VITALS: BP 111/76; PULSE 86; RESP 22; TEMP 36.6; O2SAT 100; BMI 20.1
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
[2022-03-28] MEDS: Ondansetron 4 MG/2 ML Vial IV (13:02)
[2022-03-28] MEDS: 0.9% Normal Saline 1,000 ML 999 ML IV (13:02)
[2022-03-28] MEDS: fentaNYL 100 MCG/2 ML Ampul 50 MCG IV (13:02)
[2022-03-28] MEDS: Diphth,Pertuss(Acell),Tet Vac 0.5 ML Vial IM (13:03)
[2022-03-28 13:07] LABS: Absolute Lymphocyte Count 1.96 X10^3/uL (0.83-4.51); Absolute Neutrophil Count 5.9 X10^3/uL (2.0-7.7); Basophil# 0.07 X10^3/uL; Basophil% 0.8 % (0-1); Eosinophil# 0.03 X10^3/uL; Eosinophils% 0.4 % (0-5); Hematocrit 36.3 % (37-47); Hemoglobin 11.9 g/dL (12.0-15.0); Lymphocyte # 1.96 X10^3/ul (0.83-4.51); Lymphocyte % 23.2 % (19-41); Mean Corp Hgb Conc 32.8 g/dL (32-36); Mean Corpuscular Hgb 32.1 pg (27.0-32.0); Mean Corpuscular Volume 97.8 fL (81-99); Monocyte# 0.39 X10^3/uL; Monocyte% 4.6 % (0-10); NRBC Flagged by Analyzer 0 % (0-5); Neutrophil # 5.86 X10^3/uL (2.7-7.7); Neutrophil % 69.3 % (47-70); Platelet Count 268 K/mm3 (150-450); RBC Distribution Width CV 12.2 % (11.6-14.6); RBC Distribution Width SD 44.2 fl (35.1-43.9); Red Blood Count 3.71 M/mm3 (4.2-5.4); White Blood Count 8.5 K/mm3 (4.4-11.0)
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
[2022-03-28 13:15] LABS: Partial Thromboplast Time 23.4 Seconds (24.1-36.2); Prothrombin Time (Protime)PT. 12.6 SECONDS (11.7-14.9)
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
[2022-03-28 13:22] LABS: AST(SGOT) 30 U/L (15-37); Alanine Aminotransfer ALT/SGPT 32 U/L (13-56); Albumin, Serum 3.9 g/dL (3.2-5.0); Alkaline Phosphatase 45 U/L (45-117); Anion Gap 9 (5-15); BUN 15 mg/dL (7-18); BUN/Creat Ratio 13.2 RATIO (10-20); Bilirubin, Direct 0.12 mg/dL (0.00-0.30); Calcium,Total 9.8 mg/dL (8.5-10.1); Chloride 109 mmol/L (98-107); Creatinine, Serum 1.14 mg/dL (0.55-1.02); EST Glomerular Filtration Rate 54 mL/min (>60); Est Glom Filt Rate - Afr Amer 65 mL/min (>60); Estimated Creatinine Clearance 49.58 ml/min; Globulin 3.1 g/dL (2.2-4.2); Glucose 131 mg/dL (74-106); Potassium 3.5 mmol/L (3.5-5.1); Sodium Level 140 mmol/L (136-145)
[2022-03-28] MEDS: oxyCODONE 5 MG Tablet PO ×2 (14:49→19:51)
[2022-03-28 14:51] VITALS: BP 117/63; PULSE 66; RESP 18; O2SAT 96
--- NOTE | 2022-03-28 15:24 | ED.RN ---
pt made 2 attempts to get out of bed and ambulate, both times pt got dizzy and lightheaded get out of bed. Dr. Ortega made aware.
--- NOTE | 2022-03-28 15:52 | NURSING ---
MED SURG OBS KOTSONIS PELVIC FX
[2022-03-28 15:54] VITALS: BP 113/70; PULSE 63; RESP 16; TEMP 36.4; O2SAT 100
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
[2022-03-28 17:19] VITALS: BMI 20.1
[2022-03-28] MEDS: Acetaminophen 325 MG Tablet 650 MG PO (19:51)
[2022-03-28 20:00] VITALS: BP 157/93; PULSE 62; RESP 16; TEMP 37.1; O2SAT 100
[2022-03-28] MEDS: cycloBENZAPRine HCl 5 MG TABLET PO (21:01)
[2022-03-28] MEDS: Pravastatin 20 MG Tablet 10 MG PO (21:01)
[2022-03-29] MEDS: Acetaminophen 325 MG Tablet 650 MG PO ×3 (01:55→13:56)
[2022-03-29] MEDS: oxyCODONE 5 MG Tablet PO ×3 (01:55→13:57)
[2022-03-29 02:00] VITALS: BP 121/79; PULSE 65; RESP 16; TEMP 37.1; O2SAT 100
[2022-03-29] MEDS: 0.9% Saline Lock 10 ML Syringe IV (03:55)
[2022-03-29] MEDS: Ketorolac 15 MG/ML Vial IV ×2 (03:55→08:52)
[2022-03-29] MEDS: cycloBENZAPRine HCl 5 MG TABLET PO (05:01)
[2022-03-29] MEDS: Ferrous Sulfate 325 MG Tablet PO (08:48)
[2022-03-29] MEDS: Multivitamins,Therapeutic Tablet 1 TABLET PO (08:49)
[2022-03-29] MEDS: busPIRone 5 MG Tablet 10 MG PO (08:49)
[2022-03-29] MEDS: Docusate Sodium 100 MG Capsule 200 MG PO (08:50)
[2022-03-29] MEDS: Ascorbic Acid 500 MG Tablet PO (08:51)
[2022-03-29] MEDS: buPROPion (XL) 150 MG TABLET.XL PO (08:51)
[2022-03-29] MEDS: Escitalopram Oxalate 20 MG Tablet PO (08:51)
[2022-03-29 09:00] VITALS: BP 101/54; PULSE 98; RESP 18; TEMP 36.7; O2SAT 100
--- NOTE | 2022-03-29 11:08 | CASEMGMT ---
MARINA MENDEZ in to pt room, pt lying in bed in no distress. Pt nurse states pt needs a FWW. Pt provided a verbal list of local DME companies, pt chose [employer]. She is aware that it may be possible to get from the ER closet. 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 Pt also interested in shower chair. She is not sure if she wants to go to outpt PT. Received signed script for all of the above. 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 In to pt room, pt states she does not want to wait to call [employer], provided her with rx and she will orange picker machine operator at [facility] along with her meds. She denies further needs.
--- NOTE | 2022-03-29 11:18 | DCINST_ITS ---
Discharge Instructions Diet Discharge Diet: No restrictions Activity Discharge Activity: Use Walker May resume sexual activity in: - (no sexual activity until follow up with ortho) Weight Bearing Status: Weight bearing as tolerated Dressing / Incision Call your doctor if you observe: Numbness or Tingling, Calf discomfort and Uncontrolled pain Follow Up Care Test Results: Test results from this visit will be discussed in further detail at your follow- up appointment, if applicable. Discharge Plan Admission Admit Date/Time: 03/28/22 15:44 Primary Reason for Your Visit: Pelvic fracture, Left hip contusion Attending Provider: Luis Fernando Deleon [facility] Orders/Prescriptions Prescriptions: New acetaminophen [Tylenol] 325 mg Tablet 650 mg PO Q6H PRN PRN (Reason: Pain Score 1-10/Temp > 100.7 F) Qty: 0 0RF escitalopram oxalate 20 mg Tablet 20 mg PO DAILY 30 Days Qty: 30 0RF cyclobenzaprine 5 mg Tablet 5 mg PO TID PRN PRN (Reason: Muscle Spasm) Qty: 20 0RF oxycodone 5 mg tablet 5 mg PO Q4H PRN PRN (Reason: Pain Score 4-10) 3 Days Qty: 20 0RF ketorolac 10 mg tablet 10 mg PO TID PRN (Reason: pain) 5 Days Qty: 15 0RF Continued bupropion HCl 150 mg tablet sustained-release 12 hr 150 mg PO DAILY 30 Days Qty: 60 pravastatin 10 mg tablet 10 mg PO DAILY 30 Days Qty: 30 ascorbic acid (vitamin C) 500 mg capsule 500 mg PO DAILY multivitamin capsule capsule 1 cap PO DAILY ferrous sulfate [FeroSul] 325 mg (65 mg iron) tablet 325 mg PO DAILY Label Comments: take 1 tablet by mouth every day buspirone 10 mg tablet 10 mg PO DAILY Label Comments: TAKE 1/2 (ONE-HALF) OF A TABLET BY MOUTH TWICE DAILY NEEDED docusate sodium 100 mg capsule 2 cap PO DAILY Label Comments: TAKE 1 TO 2 CAPSULES BY MOUTH AT BEDTIME NEEDED ergocalciferol (vitamin D2) 1,250 mcg (50,000 unit) capsule 50,000 unit PO MO Discontinued escitalopram oxalate 10 mg tablet 10 mg PO DAILY [facility]: [facility] - Disposition Disposition (needs filled in before D/C Order can be placed): Home, Self Care
[2022-03-29 11:33] VITALS: BP 107/67; PULSE 60; RESP 18; TEMP 36.6; O2SAT 100
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
== END 2022-03-29 14:00 | disposition home or self-care (01) ==
LOC: ED 13:35 → MS3 16:02
PROVIDERS: Admitting Provider Family Medicine; Emergency Provider Emergency Medicine; Visit Provider Family Medicine
DX: S32.502A Unspecified fracture of left pubis, initial encounter for closed fracture (principal); D64.9 Anemia, unspecified; N18.9 Chronic kidney disease, unspecified; V48.4XXA Person boarding or alighting a car injured in noncollision transport accident, initial encounter; E78.00 Pure hypercholesterolemia, unspecified; R53.1 Weakness; Y93.89 Activity, other specified; Y99.9 Unspecified external cause status; Y92.9 Unspecified place or not applicable; F41.9 Anxiety disorder, unspecified; F32.A Depression, unspecified; Z79.899 Other long term (current) drug therapy; T14.8XXA Other injury of unspecified body region, initial encounter
CPT/HCPCS: 73502; 74177; 80048; 80076; 85025; 85610; 85730; 90715; 96361; 96374; 96375; 96376; 97161; 97165; 99218; 99284; J7030; Q9967; A4216; G0378; J2405

== ENCOUNTER → 2022-05-15 | Outpatient (CLI) | payer MEDICAID, SELFPAY ==
[2022-05-18 11:44] LABS: Vitamin D 1,25-Dihydroxy 44.2 pg/mL (24.8-81.5)
== END | disposition home or self-care (01) ==
LOC: LAB 10:04
PROVIDERS: Referring Provider Nurse Practitioner Adult Health; Visit Provider Nurse Practitioner Adult Health
DX: E55.9 Vitamin D deficiency, unspecified (principal)
CPT/HCPCS: 36415; 82652

== ENCOUNTER 2022-05-30 15:30 | Outpatient (RCR) | payer MEDICAID, SELFPAY ==
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
== END 2022-05-30 19:00 | disposition home or self-care (01) ==
LOC: PT 15:30
DX: S32.512D Fracture of superior rim of left pubis, subsequent encounter for fracture with routine healing (principal); X58.XXXD Exposure to other specified factors, subsequent encounter; S32.592D Other specified fracture of left pubis, subsequent encounter for fracture with routine healing
CPT/HCPCS: 97110; 97162; 97164

== ENCOUNTER → 2022-09-28 | Outpatient (CLI) | payer MEDICAID, SELFPAY ==
--- NOTE | 2022-09-28 08:51 | MRI_ITS ---
EXAM: MR PELVIS WITHOUT INTRAVENOUS CONTRAST CLINICAL INDICATION: Pain -- Left inferior lateral buttock lump TECHNIQUE: Multiplanar and multisequence MR images of the pelvis without intravenous contrast. This report was created using [employer] report VeriShow technology. COMPARISON: None. FINDINGS: APPENDIX: No evidence of acute appendicitis. INTRAPERITONEAL SPACE: Normal. No ascites or other fluid collection. BLADDER: Normal. REPRODUCTIVE: Unremarkable as visualized. No mass. BONES/JOINTS: Normal. No suspicious lytic or blastic abnormality. No bone marrow edema. SOFT TISSUES: Linear fluid collection extends from the posterior aspect of the left gluteus ines muscle along the buttocks and superiorly to left lower back. Maximal thickness of the collection is 1.2 cm. Small nodular soft tissue areas within the collection noted. Considering the history of prior trauma finding is consistent with residual seroma/chronic hematoma. Associated localized nodular appearance of the subcutaneous fat of the left buttock. Muscle compartments are normal. No pelvic wall hernia. LYMPH NODES: Normal. No enlarged lymph nodes. MRI/Pelvis (Routine) IMPRESSION: Linear fluid collection within the left buttock extending to the left lower back with posttraumatic seroma, chronic hematoma. No muscle compartment or bone abnormality identified. Electronically Signed: Crow Cai MD at 10:10 EST ,
== END | disposition home or self-care (01) ==
LOC: MRI 08:49
DX: S32.502A Unspecified fracture of left pubis, initial encounter for closed fracture (principal)
CPT/HCPCS: 72195

== ENCOUNTER → 2022-10-07 | Outpatient (CLI) | payer MEDICAID, SELFPAY ==
[2022-10-07 11:13] LABS: Hematocrit 35.8 % (37-47); Hemoglobin 11.9 g/dL (12.0-15.0); Mean Corp Hgb Conc 33.2 g/dL (32-36); Mean Corpuscular Hgb 32.5 pg (27.0-32.0); Mean Corpuscular Volume 97.8 fL (81-99); Mean Platelet Vol. 9.5 fl (6.2-12.0); Platelet Count 226 K/mm3 (150-450); RBC Distribution Width CV 13.2 % (11.6-14.6); Red Blood Count 3.66 M/mm3 (4.2-5.4); White Blood Count 3.7 K/mm3 (4.4-11.0)
[2022-10-07 12:02] LABS: Vitamin D,25 Hydroxy 133.5 ng/mL
[2022-10-07 12:04] LABS: ALB/GLOB Ratio 1.2 RATIO (0.9-2.4); AST(SGOT) 29 U/L (15-37); Alanine Aminotransfer ALT/SGPT 36 U/L (13-56); Albumin, Serum 3.8 g/dL (3.2-5.0); Alkaline Phosphatase 46 U/L (45-117); Anion Gap 9 (5-15); BUN 14 mg/dL (7-18); BUN/Creat Ratio 14.6 RATIO (10-20); Calcium,Total 9.4 mg/dL (8.5-10.1); Chloride 108 mmol/L (98-107); Cholesterol 197 mg/dL (200); Creatinine, Serum 0.96 mg/dL (0.55-1.02); EST Glomerular Filtration Rate 66 mL/min (>60); Est Glom Filt Rate - Afr Amer 79 mL/min (>60); Globulin 3.3 g/dL (2.2-4.2); Glucose 82 mg/dL (74-106); High Density Lipoprotein 114 mg/dL; Iron 127 ug/dL (50-170); Iron Binding Capacity,Total 302 ug/dL (250-450); PERCENT IRON SATURATION 42.1 % (15.0-55.0); Potassium 3.5 mmol/L (3.5-5.1); Protein, Total 7.1 g/dL (6.4-8.2); Sodium Level 143 mmol/L (136-145); Triglycerides 75 mg/dL; Very Low Density Lipoprotein 15 mg/dL (5-40)
== END | disposition home or self-care (01) ==
LOC: LAB 10:48
DX: E78.5 Hyperlipidemia, unspecified (principal); D64.9 Anemia, unspecified; E55.9 Vitamin D deficiency, unspecified
CPT/HCPCS: 36415; 80053; 80061; 82306; 83540; 83550; 85027

== ENCOUNTER → 2023-02-04 | Outpatient (CLI) | payer MEDICAID, SELFPAY ==
[2023-02-04 15:40] LABS: Bacteria 0 SEEN /hpf (None Seen); Mucous, Urine 0 SEEN /hpf (<or=2+); Red Blood Cells-Urine 0 SEEN /hpf (0-5); White Blood Cells 0 SEEN /hpf (0-5)
[2023-02-04 15:47] LABS: Color, Urine Yellow (Yellow); Glucose, Dipstick Normal (Normal); Ketone-Dipstick Negative (Negative); Leukocyte Esterase-Dipstick Negative /ul (Negative); Nitrite-Dipstick Negative (Negative); Occult Blood-Urine Negative /ul (Negative); Protein-Dipstick Negative (Negative); Urine Bilirubin Dipstick Negative (Negative); Urine Clarity Clear (Clear); Urine Urobilinogen Normal (Normal)
[2023-02-04 16:16] LABS: Squamous Epithelial Cells - UA 0-5 SEEN /hpf (5-10)
== END | disposition home or self-care (01) ==
LOC: LABSPEC 15:30
PROVIDERS: Referring Provider Physician Assistant; Visit Provider Physician Assistant
DX: R10.9 Unspecified abdominal pain (principal)
CPT/HCPCS: 81001; 87086

== ENCOUNTER → 2023-06-22 | Outpatient (CLI) | payer MEDICAID, SELFPAY ==
[2023-06-22 11:32] LABS: Vitamin D,25 Hydroxy 66.6 ng/mL
== END | disposition home or self-care (01) ==
LOC: LAB 10:03
PROVIDERS: Visit Provider Nurse Practitioner Family
DX: T45.2X1A Poisoning by vitamins, accidental (unintentional), initial encounter (principal); X58.XXXA Exposure to other specified factors, initial encounter
CPT/HCPCS: 36415; 82306

== ENCOUNTER → 2023-08-11 | Outpatient (CLI) | payer MEDICAID, SELFPAY ==
[2023-08-11 13:18] LABS: Estradiol < 11.0 pg/mL; Luteinizing Hormone 48.6 mIU/mL
== END | disposition home or self-care (01) ==
LOC: LAB 11:06
DX: Z78.0 Asymptomatic menopausal state (principal)
CPT/HCPCS: 36415; 82670; 83001; 83002

== ENCOUNTER → 2023-08-27 | Outpatient (CLI) | payer MEDICAID, SELFPAY ==
--- NOTE | 2023-08-27 16:05 | BI_ITS ---
MAMMOGRAPHY - BILATERAL SCREENING REASON FOR EXAM: Female, 53 years old. Routine annual screening examination. PERTINENT HISTORY: Aunt with breast cancer. TECHNIQUE: Digital bilateral breast lavelle (3D mammographic acquisition) in the CC and MLO projections. 2-D mediolateral oblique (MLO) and craniocaudad (CC) views of both breasts were obtained. CAD: Full Field Digital Mammography with Computer Added Detection was performed. COMPARISON: Comparison is made with prior study dated December 27, 2020 and February 20, 2000 FINDINGS: Breast Composition: The breasts are extremely dense, which lowers the sensitivity of mammography. There are no dominant masses or suspicious calcifications. No other significant abnormalities are identified. There has been no significant change since the prior study. BI/SCRN MAMM (CAD)W/LAVELLE BILAT IMPRESSION: Stable bilateral screening mammogram. Yearly follow-up mammogram recommended. (A) ASSESSMENT CATEGORY: BIRADS Category 1: Negative. A letter regarding these results will be sent to the patient by the facility within 30 days. Approximately 10% of breast cancers are not detected by mammography. A normal mammogram should not delay biopsy of a clinically suspicious abnormality. [id number] Electronically Signed: Isidoro Silva MD at 8:14 EST ,
== END | disposition home or self-care (01) ==
LOC: OPBI 08-28 08:11
PROVIDERS: Visit Provider Nurse Practitioner Family
DX: Z12.31 Encounter for screening mammogram for malignant neoplasm of breast (principal)
CPT/HCPCS: 77063; 77067

== ENCOUNTER → 2024-09-20 | Outpatient (CLI) | payer MEDICAID, SELFPAY ==
[2024-09-20 12:38] LABS: Absolute Neutrophil Count 2.4 X10^3/uL (2.0-7.7); Basophil# 0.08 X10^3/uL; Basophil% 1.9 % (0-1); Eosinophil# 0.08 X10^3/uL; Eosinophils% 1.9 % (0-5); Hematocrit 38.4 % (37-47); Hemoglobin 12.7 g/dL (12.0-15.0); Lymphocyte % 32.5 % (19-41); Mean Corp Hgb Conc 33.1 g/dL (32-36); Mean Corpuscular Hgb 32.6 pg (27.0-32.0); Mean Corpuscular Volume 98.5 fL (81-99); Mean Platelet Vol. 10.1 fl (6.2-12.0); Monocyte# 0.33 X10^3/uL; Monocyte% 7.7 % (0-10); NRBC Flagged by Analyzer 0 % (0-5); Neutrophil % 55.5 % (47-70); Platelet Count 250 K/mm3 (150-450); RBC Distribution Width CV 12.2 % (11.6-14.6); RBC Distribution Width SD 43.9 fl (35.1-43.9); White Blood Count 4.3 K/mm3 (4.4-11.0)
[2024-09-20 13:05] LABS: Vitamin D,25 Hydroxy 47.6 ng/mL
[2024-09-20 13:13] LABS: ALB/GLOB Ratio 1.2 RATIO (0.9-2.4); AST(SGOT) 29 U/L (15-37); Alanine Aminotransfer ALT/SGPT 32 U/L (13-56); Albumin, Serum 3.9 g/dL (3.2-5.0); Alkaline Phosphatase 54 U/L (45-117); Anion Gap 4 (5-15); BUN 15 mg/dL (7-18); BUN/Creat Ratio 17.1 RATIO (10-20); Calcium,Total 10.3 mg/dL (8.5-10.1); Chloride 109 mmol/L (98-107); Cholesterol 210 mg/dL (200); Creatinine, Serum 0.88 mg/dL (0.55-1.02); EST Glomerular Filtration Rate 72 mL/min (>60); Est Glom Filt Rate - Afr Amer 87 mL/min (>60); Globulin 3.3 g/dL (2.2-4.2); Glucose 85 mg/dL (74-106); High Density Lipoprotein 121 mg/dL; Potassium 3.4 mmol/L (3.5-5.1); Protein, Total 7.2 g/dL (6.4-8.2); Sodium Level 141 mmol/L (136-145); Triglycerides 67 mg/dL; Very Low Density Lipoprotein 13 mg/dL (5-40)
== END | disposition home or self-care (01) ==
LOC: VSLAB 11:39
PROVIDERS: PCP Nurse Practitioner Family; Visit Provider Nurse Practitioner Family
DX: D64.9 Anemia, unspecified (principal); F33.2 Major depressive disorder, recurrent severe without psychotic features; E55.9 Vitamin D deficiency, unspecified; E78.5 Hyperlipidemia, unspecified
CPT/HCPCS: 36415; 80053; 80061; 82306; 85025

== ENCOUNTER 2024-09-22 21:27 | Emergency (ER) | payer MEDICAID, SELFPAY ==
[2024-09-22 21:27] VITALS: BP 116/87; PULSE 96; RESP 16; TEMP 36.7; O2SAT 99; BMI 18.0
--- NOTE | 2024-09-22 22:01 | EDS_ITS ---
HPI History of Present Illness Chief Complaint: Nausea/Vomiting/Diarrhea [facility] Medical History (Updated 09/22/24 @ 23:[address] Carlos Galloway, DO) Nausea vomiting and diarrhea Depression Anxiety Non-smoker Hx of anorexia nervosa Hypercholesterolemia Diarrhea Anemia Home Medications ?Medication ?Instructions ?Recorded ?Last Taken ?Type bupropion HCl 150 mg tablet,12 hr 150 mg PO DAILY 30 days #60 ea 06/14/18 03/28/22 History sustained-release multivitamin 1 cap PO DAILY 06/14/18 Unknown History pravastatin 10 mg tablet 10 mg PO DAILY 30 days #30 tabs 06/14/18 03/28/22 History buspirone 10 mg tablet 10 mg PO DAILY 03/28/22 03/28/22 History docusate sodium 100 mg capsule 2 cap PO DAILY costipation 03/28/22 03/28/22 History ergocalciferol (vitamin D2) 1,250 50,000 unit PO MO supplement 03/28/22 03/24/22 History mcg (50,000 unit) capsule ferrous sulfate 325 mg (65 mg 325 mg PO DAILY supplement 03/28/22 03/28/22 History iron) tablet (FeroSul) acetaminophen 325 mg tablet 650 mg (2 x 325 mg) PO Q6H PRN PRN 03/29/22 Unknown Rx (Tylenol) Pain Score 1-10/Temp > 100.7 F #0 tabs escitalopram oxalate 20 mg tablet 20 mg PO DAILY 30 days #30 tabs 03/29/22 Unknown Rx gauze bandage 4 1/2 X 147 #48 ea 03/29/22 Unknown Rx (Kerlix) gauze bandage 4 X 4 #100 ea 03/29/22 Unknown Rx non-adherent bandage 5 X 9 #20 ea 03/29/22 Unknown Rx (Combine ABD) meloxicam 15 mg tablet 15 mg PO DAILY Pain #30 tabs 03/13/23 Unknown Rx promethazine 12.5 mg tablet 12.5 mg PO Q6H PRN nausea and 09/08/23 Unknown Rx vomiting #14 tabs ondansetron 4 mg disintegrating 4 mg PO Q8H PRN PRN Nausea #10 tabs 09/22/24 Unknown Rx tablet Allergy/AdvReac Type Severity Reaction Status Date / Time Sulfa (Sulfonamide Allergy Rash Verified 09/22/24 21:29 Antibiotics) Family History Other Breast cancer Colon cancer Diabetes Hypercholesterolemia Hypertension Social History Smoking Status: Never smoker alcohol intake: never EXAM Physical Exam Const Vital Signs: 09/22/24 21:27 Temperature 98.0 F Temperature Source Temporal Pulse Rate 96 Respiratory Rate 16 Blood Pressure 116/87 H Blood Pressure Mean 96 Pulse Ox 99 Oxygen Delivery Method Room Air [facility] MDM Narrative Medical decision making narrative: HISTORY OF PRESENT ILLNESS: 54-year-old female presents with nausea vomiting diarrhea. Notes this began after ingesting a large amount of [place] ice cream. Notes her ate the same screen with no symptoms. Notes this happened to her in the past when eating no containing foods. Specifically with ice cream. Denies recent travel, surgery, antibiotics. Denies any fever or bloody bowel movement notes diffuse abdominal pain. Notes nonbloody nonbilious vomitus. Denies urinary complaints. No frequency, no urgency, no dysuria REVIEW OF SYSTEMS: Pertinent positives: Nausea vomiting diarrhea Pertinent negatives: Fever, chest pain PHYSICAL EXAM: Nursing triage notes reviewed, Vital signs reviewed Constitutional: please see mdm HENT: MMM Eyes: Pupils equal round and reactive to light, Extraocular muscles intact Neck: No stridor, no JVD, full neck ROM Lungs: Clear to auscultation, No wheezing or rales. No increased work of breathing, no conversational dyspnea, no accessory muscle use, no nasal flaring. No respiratory distress noted Heart: Regular rate and rhythm, No murmurs, No rubs and No gallops, 2+ distal pulses (radial, femoral, posterior tibial) in all extremities Abdomen: Soft, there is no tenderness, rigidity, rebound or guarding, no obvious peritoneal signs, no palpable pulsatile abdominal masses, no auscultated abdominal bruit : No CVAT Extremities: No edema Neuro: No new focal neurological deficits, cranial nerves II through XII intact, 5/5 strength in all present extremities. Intact sensation to light touch in all present extremities, 2+ reflexes bilateral patella tendons. Skin: No rash or lesions noted MEDICAL DECISION MAKING: Chief Complaint: Nausea vomiting and diarrhea External records reviewed: Reviewed prior allergies, problem list, current medications Factors affecting care: Depression, hyperlipidemia, nausea vomiting diarrhea Social determinants of health: none History obtained from others: Patient's Consults: none MDM Narrative: Patient was initially hemodynamically stable, afebrile and nontoxic-appearing. Exam with diffusely tender abdomen with no obvious peritoneal signs. I considered the following differential diagnosis: Dehydration, electrolyte disturbance, intra-abdominal surgical pathology ALL IMAGES (IF OBTAINED) HAVE BEEN PERSONALLY REVIEWED AND INTERPRETED BY MYSELF . CBC with leukocytosis, no anemia or thrombocytopenia BMP with mild hyponatremia, noted marginal metabolic acidosis, no anion gap, no acute kidney injury, no evidence of hepatobiliary obstruction Serum test is negative Urinalysis shows no evidence of urinary inflammation suggestive of UTI CT scan did not reveal evidence of acute surgical pathology. Did show evidence of possible enterocolitis. I suspect the patient is suffering from some form of colonic inflammation. Likely secondary to lactose containing food There is no fever, melena, hematochezia or recent travel or sick contacts suggest invasive bacterial species. I would not feel the patient benefit from antibiotics. Encouraged to avoid triggers such as ice cream, or other lactose containing food items. Encouraged Tylenol, ibuprofen, plenty of fluids and prescribe Zofran for nausea. Strict return precautions were discussed. The patient and/or family, caregivers express understanding. The patient and/or family, caregivers agrees with the plan. Shared decision making: I will have a discussion with the patient and or visitors regarding risk/benefits of further testing or admission. They will be made aware of of the risk/benefits inherent in this decision they will be given the opportunity to voice understanding. Total critical care time today provided was at least 0 minutes. This excludes separately billable procedures. Critical care time (if documented) is secondary to the patient having high probability of clinically significant/life threatening deterioration in the patient's condition which required my urgent intervention. Impression: 1. Acute abdominal pain 2. Nausea vomiting diarrhea Dispo: Discharge home This note was generated with [employer] dictation software. It may contain incorrect words, spelling, and punctuation that were not noted in review of the chart prior to signing. Lab Data Labs: Laboratory Results - last 24 hr 09/22/24 09/22/24 09/22/24 21:38 22:00 22:24 WBC 11.8 H RBC 4.50 Hgb 14.5 Hct 42.4 MCV 94.2 MCH 32.2 H MCHC 34.2 RDW Std Deviation 42.4 RDW Coeff of Jennifer 12.2 Plt Count 317 MPV 10.2 Immature Gran % (Auto) 0.300 Neut % (Auto) 89.5 H Lymph % (Auto) 6.4 L [place] % (Auto) 3.0 Eos % (Auto) 0.3 Baso % (Auto) 0.5 Absolute Neuts (auto) 10.6 H Absolute Lymphs (auto) 0.75 L Nucleated RBC % 0 Sodium 146 H Potassium 3.6 Chloride 113 H Carbon Dioxide 20.0 L Anion Gap 12 BUN 19 H Creatinine 1.08 H Estim Creat Clear Calc 45.81 Est GFR (MDRD) Af Amer 68 Est GFR (MDRD) Non-Af 57 L BUN/Creatinine Ratio 17.6 Glucose 124 H Calcium 9.9 Total Bilirubin 0.40 AST 33 ALT 32 Alkaline Phosphatase 66 Total Protein 8.1 Albumin 4.4 Globulin 3.7 Albumin/Globulin Ratio 1.2 Serum , Qual NEGATIVE Urine Color Yellow Urine Clarity Sl. Cloudy Urine pH 5.0 Ur Specific [place] 1.025 Urine Protein 15 H Urine Glucose (UA) Normal Urine Ketones 5 H Urine Occult Blood 10 H Urine Nitrite Negative Urine Bilirubin Negative Urine Urobilinogen 1 H Ur Leukocyte Esterase 25 H Urine RBC 0 SEEN Urine WBC 0-5 SEEN Ur Squamous Epith Cells 0-5 SEEN Calcium Oxalate Crystal 2+ Urine Bacteria 0 SEEN Urine Mucus 1+ Radiography Diagnostic Testing: Clinical Impression(s) from Imaging Studies Abdomen/Pelvis CT 09/22/24 22:22 IMPRESSION: 1. Distended colon with liquid stool. Decompressed small bowel with enhancing leslie. Findings consistent with an enterocolitis. Correlate for diarrheal state. 2. Degenerative changes in the spine and bilateral L5 spondylolysis with trace grade 1 anterolisthesis of L5 upon S1. 3. Scarring in the left buttocks. Minimal fluid within the soft tissues of the left buttocks is likely persistent seroma or hematoma. Additional areas of chronic fat necrosis. Electronically Signed: Emerson Hsieh DO at 22:56 EST , Discharge Plan Triage Chief Complaint: Nausea/Vomiting/Diarrhea ED Provider: Carlos Galloway Dx/Rx/DC Orders Clinical Impression: Diarrhea, Gastroenteritis Instructions: ED Diarrhea, Unknown Cause Prescriptions: New ondansetron 4 mg tablet,disintegrating 4 mg PO Q8H PRN PRN (Reason: Nausea) Qty: 10 0RF No Action bupropion HCl 150 mg tablet sustained-release 12 hr 150 mg PO DAILY 30 Days Qty: 60 pravastatin 10 mg tablet 10 mg PO DAILY 30 Days Qty: 30 multivitamin capsule 1 cap PO DAILY meloxicam 15 mg tablet 15 mg PO DAILY Qty: 30 0RF Rx Instructions: Do not take in conjunction with other NSAIDs. Tylenol is okay. promethazine 12.5 mg tablet 12.5 mg PO Q6H PRN (Reason: nausea and vomiting) Qty: 14 0RF ferrous sulfate [FeroSul] 325 mg (65 mg iron) tablet 325 mg PO DAILY Patient Comments: take 1 tablet by mouth every day buspirone 10 mg tablet 10 mg PO DAILY Patient Comments: TAKE 1/2 (ONE-HALF) OF A TABLET BY MOUTH TWICE DAILY NEEDED docusate sodium 100 mg capsule 2 cap PO DAILY Patient Comments: TAKE 1 TO 2 CAPSULES BY MOUTH AT BEDTIME NEEDED ergocalciferol (vitamin D2) 1,250 mcg (50,000 unit) capsule 50,000 unit PO MO acetaminophen [Tylenol] 325 mg Tablet 650 mg PO Q6H PRN PRN (Reason: Pain Score 1-10/Temp > 100.7 F) Qty: 0 0RF escitalopram oxalate 20 mg Tablet 20 mg PO DAILY 30 Days Qty: 30 0RF (DME) Kerlix 4 1/2 X 147 bandage See Rx Instructions .Route Qty: 48 0RF Rx Instructions: As directed (DME) gauze bandage 4 X 4 bandage See Rx Instructions .Route Qty: 100 0RF Rx Instructions: As directed (DME) Combine ABD 5 X 9 bandage See Rx Instructions .Route Qty: 20 0RF Rx Instructions: As directed Primary Care Provider: Chely Schuster Referrals: Chely Schuster, [facility] [Primary Care Provider] - Activity Restrictions/Additional Instructions: Thank you for trusting us with your care today! Your labs and images are reassuring. Specifically there is no sign of an acute life-threatening abnormality in your abdomen. Your CT scan did reveal evidence of inflammation of your colon likely secondary to recent adverse reaction to ingested food stuff. Please take Zofran as needed for nausea and vomiting control at home. Please increase oral fluid intake. Recommend Body Armor Pedialyte as electrolyte containing fluid solutions. Please take Tylenol (2 pills, 650 mg), ibuprofen (2 pills, 400 mg) every 6 hours as needed for pain and fever control. Please return to the emergency department if your symptoms change or worsen. Specifically develop vomiting that is not controlled by oral Zofran. Abdominal pain, fever, bloody bowel movements. Please follow with your primary care physician for further outpatient evaluation and management. Print Language: Citizen Of [place] Disposition Disposition: Home, Self Care
[2024-09-22 22:11] LABS: Absolute Lymphocyte Count 0.75 X10^3/uL (0.83-4.51); Absolute Neutrophil Count 10.6 X10^3/uL (2.0-7.7); Basophil# 0.06 X10^3/uL; Basophil% 0.5 % (0-1); Eosinophil# 0.03 X10^3/uL; Eosinophils% 0.3 % (0-5); Hematocrit 42.4 % (37-47); Hemoglobin 14.5 g/dL (12.0-15.0); Lymphocyte # 0.75 X10^3/ul (0.83-4.51); Lymphocyte % 6.4 % (19-41); Mean Corp Hgb Conc 34.2 g/dL (32-36); Mean Corpuscular Hgb 32.2 pg (27.0-32.0); Mean Corpuscular Volume 94.2 fL (81-99); Mean Platelet Vol. 10.2 fl (6.2-12.0); Monocyte# 0.35 X10^3/uL; NRBC Flagged by Analyzer 0 % (0-5); Neutrophil # 10.55 X10^3/uL (2.7-7.7); Neutrophil % 89.5 % (47-70); Platelet Count 317 K/mm3 (150-450); RBC Distribution Width CV 12.2 % (11.6-14.6); RBC Distribution Width SD 42.4 fl (35.1-43.9); White Blood Count 11.8 K/mm3 (4.4-11.0)
--- NOTE | 2024-09-22 22:22 | CT_ITS ---
EXAM: CT ABDOMEN AND PELVIS WITH INTRAVENOUS CONTRAST CLINICAL INDICATION: abdominal pain TECHNIQUE: Helically acquired images were obtained of the abdomen and pelvis with intravenous contrast. This CT exam was performed using one or more of the following dose reduction techniques: automated exposure control, adjustment of the mA and/or kV according to patient size, and/or use of iterative reconstruction technique. CONTRAST: IV 100mL [id number] COMPARISON: MRI pelvis, 09/28/2022. FINDINGS: LOWER THORAX: No significant abnormality. Lung bases are clear. No cardiomegaly. No significant pericardial effusion. ABDOMEN: LIVER: No significant abnormality. Homogeneous. No focal mass. GALLBLADDER AND BILE DUCTS: No significant abnormality. No calcified gallstones. No gallbladder distention or wall edema. No intra- or extrahepatic biliary ductal dilation. PANCREAS: No significant abnormality. No focal cystic or solid mass. SPLEEN: No significant abnormality. Normal size without focal cystic or solid mass. ADRENALS: No significant abnormality. No nodules. KIDNEYS AND URETERS: There is a small left renal cyst for which no follow-up is indicated. Normal renal size and position. No hydronephrosis. STOMACH AND BOWEL: Distended colon with liquid stool. Decompressed small bowel with enhancing leslie. No focal inflammatory change. PELVIS: APPENDIX: Normal appendix in the right lower quadrant. BLADDER: No significant abnormality. REPRODUCTIVE: Normal as visualized. No mass. ABDOMEN and PELVIS: INTRAPERITONEAL SPACE: No significant abnormality. No ascites or other fluid collection. No free air. BONES/JOINTS: Degenerative changes in the spine and bilateral L5 spondylolysis with trace grade 1 anterolisthesis of L5 upon S1. No suspicious lytic or blastic abnormality. SOFT TISSUES: Scarring in the left buttocks. Minimal fluid within the soft tissues of the left buttocks is likely persistent seroma or hematoma. Additional areas of chronic fat necrosis. No discrete abdominal or pelvic wall hernia. VASCULATURE: Minimal atherosclerosis. No aneurysm. LYMPH NODES: No significant abnormality. No enlarged lymph nodes. CT/Abdomen/Pelvis W IV Cont ONLY IMPRESSION: 1. Distended colon with liquid stool. Decompressed small bowel with enhancing leslie. Findings consistent with an enterocolitis. Correlate for diarrheal state. 2. Degenerative changes in the spine and bilateral L5 spondylolysis with trace grade 1 anterolisthesis of L5 upon S1. 3. Scarring in the left buttocks. Minimal fluid within the soft tissues of the left buttocks is likely persistent seroma or hematoma. Additional areas of chronic fat necrosis. Electronically Signed: Emerson Hsieh DO at 22:56 EST ,
[2024-09-22 22:23] LABS: Internal QC Validated? YES +Cl - CLEAR BKGD; Pregnancy, Serum, hCG Quali. NEGATIVE Negative
[2024-09-22] MEDS: Ondansetron 4 MG/2 ML Vial IV (22:27)
[2024-09-22] MEDS: Ketorolac 15 MG/ML Vial IV (22:27)
[2024-09-22] MEDS: 0.9% Normal Saline (1000mL) 1,000 ML 999 ML IV (22:27)
[2024-09-22 22:29] LABS: ALB/GLOB Ratio 1.2 RATIO (0.9-2.4); AST(SGOT) 33 U/L (15-37); Alanine Aminotransfer ALT/SGPT 32 U/L (13-56); Albumin, Serum 4.4 g/dL (3.2-5.0); Alkaline Phosphatase 66 U/L (45-117); Anion Gap 12 (5-15); BUN 19 mg/dL (7-18); BUN/Creat Ratio 17.6 RATIO (10-20); Calcium,Total 9.9 mg/dL (8.5-10.1); Chloride 113 mmol/L (98-107); Creatinine, Serum 1.08 mg/dL (0.55-1.02); EST Glomerular Filtration Rate 57 mL/min (>60); Est Glom Filt Rate - Afr Amer 68 mL/min (>60); Estimated Creatinine Clearance 45.81 ml/min; Globulin 3.7 g/dL (2.2-4.2); Glucose 124 mg/dL (74-106); Potassium 3.6 mmol/L (3.5-5.1); Protein, Total 8.1 g/dL (6.4-8.2); Sodium Level 146 mmol/L (136-145)
[2024-09-22 22:34] LABS: Bacteria 0 SEEN /hpf (None Seen); Red Blood Cells-Urine 0 SEEN /hpf (0-5)
[2024-09-22 22:41] LABS: Color, Urine Yellow (Yellow); Glucose, Dipstick Normal (Normal); Ketone-Dipstick 5 mg/dl (Negative); Leukocyte Esterase-Dipstick 25 /ul (Negative); Nitrite-Dipstick Negative (Negative); Occult Blood-Urine 10 /ul (Negative); Protein-Dipstick 15 mg/dl (Negative); Specific Gravity, Urine 1.025 (1.002-1.030); Urine Bilirubin Dipstick Negative (Negative); Urine Clarity Sl. Cloudy (Clear); Urine Urobilinogen 1 mg/dl (Normal)
[2024-09-22 22:55] LABS: Mucous, Urine 1+ /hpf (<or=2+); Squamous Epithelial Cells - UA 0-5 SEEN /hpf (5-10); White Blood Cells 0-5 SEEN /hpf (0-5)
[2024-09-22 22:56] LABS: Calcium Oxalate Crystals Ur 2+ /hpf (<or=2+)
[2024-09-22 23:34] VITALS: BP 107/68; PULSE 65; RESP 15; TEMP 36.6; O2SAT 99
[2024-09-23 00:09] LABS: Lipase 47 U/L (13-75)
== END 2024-09-22 23:48 | disposition home or self-care (01) ==
PROVIDERS: Emergency Provider Emergency Medicine; PCP Nurse Practitioner Family; Visit Provider Emergency Medicine
DX: K52.9 Noninfective gastroenteritis and colitis, unspecified (principal)

== ENCOUNTER → 2024-10-13 | Outpatient (CLI) | payer MEDICAID, SELFPAY ==
--- NOTE | 2024-10-13 17:02 | BI_ITS ---
PROCEDURE: SCRN MAMM (CAD)W/LAVELLE BILAT REASON FOR EXAM: F, Age 54 y/o , presents for annual screening mammogram. Family history of breast cancer in maternal aunt in her 60s. History of basal cell carcinoma of the left breast status post excision. TECHNIQUE: Bilateral screening digital breast tomosynthesis with 2D and 3D images. Computer aided detection. COMPARISON: 08/27/2023 FINDINGS: The breasts are heterogeneously dense which may obscure small masses. The mammogram demonstrates that the patient has dense breasts. Supplemental screening with whole breast ultrasound may be considered for further evaluation. No suspicious masses, areas of developing architectural distortion, or suspicious calcifications. BI/SCRN MAMM (CAD)W/LAVELLE BILAT IMPRESSION: There is no mammographic evidence of malignancy in either breast. BI-RADS 1: NEGATIVE. RECOMMEND ANNUAL MAMMOGRAPHIC SCREENING. Follow-up code: Routine Follow-up The patient will be notified of the results by letter. Reading Location: [id number]
== END | disposition home or self-care (01) ==
LOC: OPBI 10-14 08:34
PROVIDERS: PCP Nurse Practitioner Family; Referring Provider Nurse Practitioner Family; Visit Provider Nurse Practitioner Family
DX: Z12.31 Encounter for screening mammogram for malignant neoplasm of breast (principal); Z80.3 Family history of malignant neoplasm of breast; Z85.828 Personal history of other malignant neoplasm of skin
CPT/HCPCS: 77063; 77067

== ENCOUNTER → 2025-03-07 | Outpatient (CLI) | payer MEDICAID, SELFPAY ==
[2025-03-07 15:59] LABS: Hematocrit 36.0 % (37-47); Hemoglobin 12.2 g/dL (12.0-15.0); Immature Granulocytes Count 0.010 X10^3/uL (0.0-0.0); Mean Corp Hgb Conc 33.9 g/dL (32-36); Mean Corpuscular Volume 95.5 fL (81-99); Mean Platelet Vol. 10.0 fl (6.2-12.0); NRBC Flagged by Analyzer 0 % (0-5); Platelet Count 232 K/mm3 (150-450); RBC Distribution Width CV 12.1 % (11.6-14.6); RBC Distribution Width SD 42.4 fl (35.1-43.9); Red Blood Count 3.77 M/mm3 (4.2-5.4); White Blood Count 3.9 K/mm3 (4.4-11.0)
[2025-03-07 16:35] LABS: AST(SGOT) 31 U/L (<=31); Alanine Aminotransfer ALT/SGPT 28 U/L (<=34); Albumin, Serum 4.2 g/dL (3.5-5.0); Alkaline Phosphatase 56 U/L (35-104); Anion Gap 14 (5-15); BUN 13 mg/dL (4-19); BUN/Creat Ratio 15.1 RATIO (10-20); Calcium,Total 10.2 mg/dL (7.6-11.0); Carbon Dioxide 21.6 mmol/L (21.0-32.0); Chloride 107 mmol/L (98-108); Cholesterol 229 mg/dL (<=200); Globulin 2.5 g/dL (2.2-4.2); Glucose 75 mg/dL (70-99); Low Density Lipoprotein Calc. 109 mg/dL; Potassium 3.9 mmol/L (3.3-5.1); Triglycerides 72 mg/dL; Very Low Density Lipoprotein 14 mg/dL (5-40); cholesterol:hdl ratio screen 2.16
[2025-03-07 17:05] LABS: Ferritin 636 ng/mL (22-378); Vitamin B12 2456 pg/mL (180-914)
[2025-03-07 17:09] LABS: FOLATES,SERUM (FOLIC ACID) > 40.00 ng/mL (4.60-34.80)
[2025-03-07 17:27] LABS: Iron 135 ug/dL (50-170); Iron Binding Capacity,Total 271 ug/dL (250-450); Iron Binding Capacity,Unsat 136 ug/dL (228-428)
== END | disposition home or self-care (01) ==
LOC: VSLAB 11:17
PROVIDERS: PCP Nurse Practitioner Family; Visit Provider Nurse Practitioner Family
DX: R35.0 Frequency of micturition (principal); R53.83 Other fatigue; E78.5 Hyperlipidemia, unspecified
CPT/HCPCS: 36415; 80053; 80061; 82607; 82728; 82746; 83540; 83550; 84439; 84443; 85025; 87086; 87088; 87186

== ENCOUNTER → 2025-06-07 | Outpatient (CLI) | payer MEDICAID, SELFPAY ==
[2025-06-07 16:52] LABS: Hematocrit 37.3 % (37-47); Hemoglobin 12.8 g/dL (12.0-15.0); Immature Granulocytes Count 0.010 X10^3/uL (0.0-0.0); Mean Corp Hgb Conc 34.3 g/dL (32-36); Mean Corpuscular Volume 94.9 fL (81-99); Mean Platelet Vol. 10.2 fl (6.2-12.0); NRBC Flagged by Analyzer 0 % (0-5); Platelet Count 227 K/mm3 (150-450); RBC Distribution Width CV 11.9 % (11.6-14.6); RBC Distribution Width SD 41.6 fl (35.1-43.9); Red Blood Count 3.93 M/mm3 (4.2-5.4); White Blood Count 4.2 K/mm3 (4.4-11.0)
[2025-06-07 17:47] LABS: AST(SGOT) 27 U/L (<=31); Alanine Aminotransfer ALT/SGPT 16 U/L (<=34); Albumin, Serum 4.4 g/dL (3.5-5.0); Alkaline Phosphatase 52 U/L (35-104); Anion Gap 14 (5-15); BUN 11 mg/dL (4-19); BUN/Creat Ratio 11.9 RATIO (10-20); Calcium,Total 9.9 mg/dL (7.6-11.0); Carbon Dioxide 23.0 mmol/L (21.0-32.0); Chloride 107 mmol/L (98-108); Globulin 2.4 g/dL (2.2-4.2); Glucose 75 mg/dL (70-99); Iron 95 ug/dL (50-170); Iron Binding Capacity,Total 264 ug/dL (250-450); Iron Binding Capacity,Unsat 169 ug/dL (228-428); Potassium 3.4 mmol/L (3.3-5.1); Vitamin D,25 Hydroxy 59.5 ng/mL (30-100)
== END | disposition home or self-care (01) ==
LOC: VSLAB 12:14
PROVIDERS: PCP Nurse Practitioner Family
DX: R53.83 Other fatigue (principal)
CPT/HCPCS: 36415; 80053; 82306; 83540; 83550; 84443; 85025